=== PATIENT | female | born 1945 | race Hispanic/Latino ===

== ENCOUNTER 2018-07-13 18:51 | Emergency (ER) | payer MEDICARE, OTHER ==
[~2018-07-13] VITALS: Ht 152.4 cm; Wt 62.6 kg
[~2018-07-13 18:51] MED LIST: DIOVAN HCT 1601 EAC1 PO; OMEPRAZOLE20 MG PO; PRAVASTATIN SOD80 MG PO
[2018-07-13] MEDS ORDERED: ONDANSETRON HCL INJ 2 MG/ML VIAL ONE (19:27)
--- NOTE | 2018-07-13 19:29 | NUR ---
GIVEN CUP FOR UA
[2018-07-13] MEDS ORDERED: ONDANSETRON HCL INJ 2 MG/ML VIAL IV STA (19:30)
[2018-07-13] MEDS ORDERED: ACETAMINOPHEN 325 MG TAB PO ONE (19:30)
[2018-07-13 20:23] LABS: BASOPHILS % 0.1 % (0.0-1.0); HEMATOCRIT 40.2 % (34.2-44.1); HEMOGLOBIN 13.6 g/dL (12.0-16.0); LYMPHOCYTES # (AUTO) 0.6 (1.0-3.2); MEAN CORPUSCULAR HEMOGLOBIN 30.2 pg (28-32); MEAN CORPUSCULAR HGB CONC 33.8 g/dL (31-35); MEAN CORPUSCULAR VOLUME 89.3 fL (81-99); MONOCYTES # (AUTO) 0.8 (0.2-0.8); MONOCYTES % 10.8 % (4.4-11.3); NEUTROPHILS # (AUTO) 6.1 (2.1-6.9); NEUTROPHILS % 80.3 % (38.7-80.0); PLATELET COUNT 234 x10e3/uL (140-360)
[2018-07-13 20:37] LABS: ALANINE AMINOTRANSFERASE 53 IU/L (0-55); ALBUMIN 3.8 g/dL (3.5-5.0); ALBUMIN/GLOBULIN RATIO 1.1 (0.8-2.0); ALKALINE PHOSPHATASE 82 IU/L (40-150); ANION GAP 15.1 mmol/L (8-16); BLOOD UREA NITROGEN 23 mg/dL (7-26); BUN/CREATININE RATIO 28 (6-25); CARBON DIOXIDE 23 mmol/L (22-29); CHLORIDE 100 mmol/L (98-107); CREATININE, SERUM 0.82 mg/dL (0.57-1.11); EST GLOMERULAR FILTRATION RATE > 60 ML/MIN (60-); GLUCOSE 110 mg/dL (74-118); POTASSIUM 3.1 mmol/L (3.5-5.1); SODIUM 135 mmol/L (136-145)
[2018-07-13 20:40] LABS: BILIRUBIN,URINE NEGATIVE (NEGATIVE); CLARITY,URINE SL CLOUDY (CLEAR); COLOR,URINE YELLOW (YELLOW); KETONES,URINE NEGATIVE (NEGATIVE); LEUKOCYTE ESTERASE ,URINE NEGATIVE (NEGATIVE); NITRITE,URINE NEGATIVE (NEGATIVE); PROTEIN,URINE DIPSTICK TRACE (NEGATIVE); URINE UROBILINOGEN 0.2 mg/dL (0.2 - 1)
[2018-07-13 20:49] LABS: AMORPHOUS SEDIMENT,URINE MODERATE (FEW); BACTERIA,URINE MANY /HPF; EPITHELIAL CELLS,URINE MODERATE /LPF; TRANSITIONAL EPI CELLS,URINE FEW
[2018-07-13] MEDS ORDERED: CEFTRIAXONE SOD 1 GM/NS 50 ML 50 ML IV SCH (22:00)
[2018-07-13] MEDS ORDERED: SODIUM CHLORIDE 0.9% 1000ML 1,000 ML IV SCH (22:00)
[2018-07-13] MEDS ORDERED: CEFTRIAXONE SOD 1 GM VIAL IV SCH (22:00)
[2018-07-13] MEDS ORDERED: SODIUM CHLORIDE 0.9% 50ML 50 ML ONE (22:04)
[2018-07-13] MEDS ORDERED: IOPAMIDOL 370 MG/ML 200 ML INFUS..BTL INJ ONE (22:04)
--- NOTE | 2018-07-13 23:41 | Diagnostic Imaging Report ---
EXAM: CT ABDOMEN/PELVIS W DATE: 07/13/2018 9:48 PM INDICATION: Lower abdominal pain COMPARISON: None TECHNIQUE: The abdomen and pelvis were scanned using a multidetector helical scanner. Coronal and sagittal reformations were obtained. CT low dose techniques were utilized, as applicable. IV Contrast: 100 ml Isovue 300/370 FINDINGS: LOWER THORAX: No consolidations LIVER/BILIARY: No masses. No ductal dilatation. GALLBLADDER: Distended gallbladder containing at least one stone. SPLEEN: Unremarkable PANCREAS: Unremarkable ADRENALS: No nodules KIDNEYS: No suspicious renal masses. No hydronephrosis. GI TRACT: Mild gastric thickening may be seen with gastritis. Extensive diverticulosis without acute inflammatory changes. No bowel obstruction. Appendix is fluid-filled, borderline dilated at 7-8 mm with questionable mucosal hyperemia but no surrounding inflammatory changes. VESSELS: Unremarkable PERITONEUM/RETROPERITONEUM: No free air or fluid LYMPH NODES: No lymphadenopathy REPRODUCTIVE ORGANS/BLADDER: Hysterectomy. Unremarkable bladder. SOFT TISSUES: Unremarkable BONES: Changes, worse at L5-S1. IMPRESSION: 1. Appendix is fluid-filled and borderline dilated but without associated inflammatory changes. Findings may reflect early acute appendicitis in the proper clinical setting. Otherwise negative for acute abnormality. 2. Diverticulosis. Signed by: Dr Mojgan Gilbert MD on 07/13/2018 11:38 PM
[2018-07-14] MEDS ORDERED: ERTAPENEM 1GM/NS 100ML 100 ML IV SCH (03:00)
[2018-07-14] MEDS ORDERED: ERTAPENEM 1 GM VIAL ONE (03:17)
[2018-07-14] MEDS ORDERED: SODIUM CHLORIDE 0.9% 100 ML ONE (03:18)
--- NOTE | 2018-07-14 03:43 | NUR ---
PTS IV IN RAC INFILTRATED, MINIMAL AMT OF SWELLING NOTED, IV DCD AND PRESSURE DRESSED WITH COBAN. 20 G PLACED TO L AC
[2018-07-14] MEDS ORDERED: POTASSIUM CHLORIDE 20 MEQ TAB CR PO STA (03:50)
--- NOTE | 2018-07-14 03:50 | NUR ---
TRANSFER INITIATED TO [facility]
--- NOTE | 2018-07-14 05:02 | NUR ---
LEFT MESSAGE FOR PTS DAUGHTER THAT APPROVAL HAS BEEN REC'D
--- NOTE | 2018-07-14 05:33 | NUR ---
REPORT GIVEN TO SAJAN NORMAN AT [facility]
[2018-07-14 06:23] VITALS: BP 98/57
== END 2018-07-14 06:24 | disposition short-term general hospital (02) ==
LOC: ER 18:51
DX: R50.9 Fever, unspecified (principal); R10.84 Generalized abdominal pain; K35.30 Acute appendicitis with localized peritonitis, without perforation or gangrene; I10 Essential (primary) hypertension; E78.5 Hyperlipidemia, unspecified; K21.9 Gastro-esophageal reflux disease without esophagitis
CPT/HCPCS: 36415; 74177; 80053; 81001; 83605; 85025; 87040; 96374; 99284; J0696; J1335; J2405; J7030; J7050; Q9967

== ENCOUNTER → 2020-07-09 | Outpatient (CLI) | payer MEDICARE, OTHER ==
[~2020-07-09] MED LIST changes: +COVID-19 VACC, MRNA(MODERNA)/PF 100 MCG/0.5 ML VIAL IM ONE
== END ==
LOC: VACCPMC 08:10
DX: Z23 Encounter for immunization (principal); Z20.822 Contact with and (suspected) exposure to COVID-19

== ENCOUNTER → 2020-08-07 | Outpatient (CLI) | payer OTHER | LOC: VACCPMC 10:20 | DX: Z23 Encounter for immunization (principal); Z20.822 Contact with and (suspected) exposure to COVID-19 | CPT/HCPCS: 0012A; 91301 ==